=== PATIENT | female | born 2000 | race African-American/Black ===

== ENCOUNTER 2024-10-04 09:37 | Outpatient (REF) | payer MEDICAID, SELFPAY ==
--- OUTSIDE RECORDS SUMMARY | 2024-10-04 10:06 | XMS_ITS | Encounter Summary ---
Author Organization [employer] Address [address] [facility] [address] [place] [address] Care Team Providers Care Buckle Sewer Machine Name Role Phone [place] [facility] Primary Care Provider [phone] Reason for Visit * Reason Onset Date Comments IZ 09/30/2024 Encounter Details Date Type Department Care Team ([facility] st Contact Info) Description 09/30/2024 Telephone [facility] [address] [place], [place] [phone] [place] [facility] [address] [place], [place] [phone] IZ Social History Tobacco Use Types Packs/Day Years Used Date Smoking Tobacco: Never Passive Smoke Exposure: Never Smokeless Tobacco: Never Alcohol Use Standard Drinks/Week Comments Never 0 (1 standard drink = 0.6 oz pur e alcohol) Depression Answer Date Recorded Patient Health Questionnaire-9 Score 0 06/10/2022 Housing Stability Answer Date Recorded What is your housing situation today? I have kenney bolivar 01/05/[address] you li ve. Do you have problems with any of the following? None of the above 01/05/2023 Food Insecurity Answer Date Recorded Within the past 12 months, y ou worried that your food would run out before you got money to buy more: Never True 01/05/2023 Within the past 12 months,th e food you bought just didn't last and you didn't have enough money to get more: Never True 07/2022 Transportation Answer Date Recorded In the past 12 months, has l ack of transportation kept you from medical appts, meetings, work or from getting things needed for daily living? No 01/05/2023 Utilities Answer Date Recorded In the past 12 months, has t he electric, gas, oil or water company threatened to shut off services in your home? No 01/05/2023 Depression Answer Date Recorded Patient Health Questionnaire-2 Score 0 06/10/2022 Comments Unknown Sex and Gender Information Value Date Recorded Sex Assigned at Female 12/30/2021 10:16 AM EDT Legal Sex Female 10:16 AM EDT Gender Identity Choose not to disclose 10:16 AM EDT Sexual Orientation Straight 12/30/2021 10 :16 AM EDT documented as of this encounter Miscellaneous Notes * Telephone Encounter - Wendy García RN - 09/30/2024 1:54 PM EDT Order placed. Last neg test 2022. TC placed to pt., she will come to lab next week prior to 3:30pm and is aware results take 3-5 days * Telephone Encounter - Roberto Spaulding - 09/30/2024 12:23 PM EDT Tc from pt reports work needing a TB test. documented in this encounter Plan of Treatment Upcoming Encounters Date Type Department Care Team (Late st Contact Info) Description 11/14/2024 9:15 AM EDT Office Visit [facility] [address] [place] [address] [facility] [address] [place] [address] Scheduled Orders Name Type Priority Associated Diagnoses Orde r Schedule T-SPOT .TB Lab Routine Screening examination for pulmonary tuberculosis Expected: 09/30/2024 (Approximate), Expires: 09/30/2025 documented as of this encounter Visit Diagnoses Diagnosis Screening examination for pulmonary tuberculosis documented in this encounter Additional Health Concerns Assessment Noted Time PHQ-9 Depression Total Score: 0 06/11/19 23 3:00 PM EDT documented as of this encounter Care Teams Buckle Sewer Machine Relationship Specialty Start Date End Date [facility] [address] [place] [phone] PCP - General Family Medicine 10/25/21 documented as of this encounter
[2024-10-07 07:03] LABS: TS Negative Control Passed; TS Panel A 0; TS Panel B 0; TS Positive Control Passed; TSpotTB Negative (Negative)
== END 2024-10-04 09:38 | disposition home or self-care (01) ==
LOC: HO.HHCL 09:37
PROVIDERS: PCP Registered Nurse; Visit Provider Registered Nurse
DX: Z11.1 Encounter for screening for respiratory tuberculosis (principal)
CPT/HCPCS: 36415; 86481

== ENCOUNTER 2024-11-14 11:07 | Outpatient (REF) | payer MEDICAID, SELFPAY ==
--- OUTSIDE RECORDS SUMMARY | 2024-11-14 09:15 | XMS_ITS | Encounter Summary ---
Author Organization [employer] Address [address] [facility] 7[address] [place] [address] Care Team Providers Care Chiller Tender Name Role Phone Vero Delcid Primary Care Provider [phone] Reason for Referral * Consultation (Routine) - Pending Review Specialty Diagnoses / Procedures Referred By Juanita chirinos Referred To Contact Oral Surgery Diagnoses Mucocele of lower lip [facility] FNP [address] [place] [address] Phone: tel: fax: Referral ID Status Reason Start Date Expiration Date Visits Requested Visits Authorized [id number] Pending Review Specialty Services Required 11/14/2024 11/14/2025 1 1 Reason for Visit * Reason Comments Annual Exam Encounter Details Date Type Department Care Team (Late st Contact Info) Description 11/14/2024 9:15 AM EDT Office Visit [facility] [address] [place] [address] [facility]ero Delcid FNP [address] [place] [address] Healthcare maintenance (Primary Dx); Current moderate episode of major depressive disorder without prior episode (CMS/HCC); Mucocele of lower lip; Encounter for BCP ( control pills) initial prescription; Routine screening for STI (sexually transmitted infection); Tobacco use; Class 2 obesity due to excess calories without serious comorbidity with body mass index (BMI) of 37.0 to 37.9 in adult; Dietary counseling; Exercise counseling; Encounter for immunization Social History Tobacco Use Types Packs/Day Years Used Date Smoking Tobacco: Never Passive Smoke Exposure: Never Smokeless Tobacco: Never Tobacco Cessation:Counseling Given: Not Answered Alcohol Use Standard Drinks/Week Comments Never 0 (1 standard drink = 0.6 oz pur e alcohol) Depression Answer Date Recorded Patient Health Questionnaire-9 Score 16 11/14/2024 Patient Health Questionnaire-9 Score 16 11/14/2024 Last PHQ-9: Questionnaire Data Not on file 0 11/14/2024 Housing Stability Answer Date Recorded What is your housing situation today? I do not have housing (Staying with others, in a hotel, in a chcf, living outside on the street, on a beach, in a car, or in a park 11/14/[address] you li ve. Do you have problems with any of the following? I am not sure 11/14/2024 Food Insecurity Answer Date Recorded Within the past 12 months, y ou worried that your food would run out before you got money to buy more: Sometimes True 2024 Within the past 12 months,th e food you bought just didn't last and you didn't have enough money to get more: Sometimes True 11/14/2024 Transportation Answer Date Recorded In the past 12 months, has l ack of transportation kept you from medical appts, meetings, work or from getting things needed for daily living? No 11/14/2024 Utilities Answer Date Recorded In the past 12 months, has t he electric, gas, oil or water company threatened to shut off services in your home? No 11/14/2024 Depression Answer Date Recorded Patient Health Questionnaire-2 Score 3 11/14/2024 Internet Access Answer Date Recorded Internet Access Q1 Yes 11/14/2024 Internet Access Q2 Not on file 11/14/2024 Comments Unknown Sex and Gender Information Value Date Recorded Sex Assigned at Female 12/30/2021 10:16 AM EDT Legal Sex Female 10:16 AM EDT Gender Identity Female 11/07/2024 1:24 PM EDT Sexual Orientation Straight 12/30/2021 10 :16 AM EDT documented as of this encounter Last Filed Vital Signs Vital Sign Reading Time Taken Comments Blood Pressure 118/80 11/14/2024 9:19 AM EDT Pulse 78 11/14/2024 9:19 AM EDT Temperature 36.9 C (98.4 F) 11/14/2024 9:19 AM EDT Respiratory Rate 18 11/14/2024 9:19 AM EDT Oxygen Saturation - - Inhaled Oxygen Concentration - - Weight 110 kg (242 lb 4 oz) 11/14/2024 9:19 AM E DT Height 170.2 cm (5' 7 ) 11/14/2024 9:19 AM EDT Body Mass Index 37.94 11/14/2024 9:19 AM EDT documented in this encounter Functional Status * Over the past 2 weeks, how often have you been bothered by any of the following problems? Question Answer Date of Assessment Author Patient Health Questionnaire-2 Score 3 10/31 9:27 AM EDT Sravani Esquivel MA * Little interest or pleasure in doing things Answer Date of Assessment Author Several days 11/14/2024 9:27 AM EDT Sravani Esquivel MA * Feeling down, depressed, or hopeless Answer Date of Assessment Author More than half the days 11/14/2024 9:27 AM EDT Sravani Dumont MA * Trouble falling or staying asleep, or sleeping too much Answer Date of Assessment Author More than half the days 11/14/2024 9:27 AM EDT Sravani Dumont MA * Feeling tired or having little energy Answer Date of Assessment Author Nearly every day 11/14/2024 9:27 AM EDT Sravani Esquivel MA * Poor appetite or overeating Answer Date of Assessment Author More than half the days 11/14/2024 9:27 AM EDT Sravani Dumont MA * Feeling bad about yourself - or that you are a failure or have let yourself or your family down Answer Date of Assessment Author More than half the days 11/14/2024 9:27 AM EDT Sravani Dumont MA * Trouble concentrating on things, such as reading the newspaper or watching television Answer Date of Assessment Author More than half the days 11/14/2024 9:27 AM EDT Sravani Dumont MA * Moving or speaking so slowly that other people could have noticed? Or the opposite - being so fidgety or restless that you have been moving around a lot more than usual. Answer Date of Assessment Author Several days 11/14/2024 9:27 AM EDT Sravani Esquivel MA * Thoughts that you would be better off or hurting yourself in some way Answer Date of Assessment Author Several days 11/14/2024 9:27 AM EDT Sravani Esquivel MA * Patient Health Questionnaire-9 Score Answer Date of Assessment Author 16 11/14/2024 9:27 AM EDT Sravani Esquivel MA * Over the last 2 weeks, how often have you been bothered by any of the following problems? Question Answer Date of Assessment Author Feeling nervous, anxious, or on edge 2 10/31 9:27 AM EDT Sravani Esquivel MA Not being able to stop or co ntrol worrying 2 11/14/2024 9:27 AM EDT Sravani Esquivel M A Worrying too much about diff erent things 2 11/14/2024 9:27 AM EDT Sravani Esquivel M A Trouble relaxing 2 11/14/2024 9:27 AM EDT Sravani Dumont MA Being so restless that it is hard to sit still 2 11/14/2024 9:27 AM EDT Sravani Esquivel M A Becoming easily annoyed or irritable 3 10/31 9:27 AM EDT Sravani Esquivel MA Feeling afraid as if somethi ng awful might happen 2 11/14/2024 9:27 AM EDT Sravani Esquivel M A HOMER-7 Total Score 15 11/14/2024 9:27 AM EDT Sravani Esquivel MA documented as of this encounter Plan of Treatment Upcoming Encounters Date Type Department Care Team (Late st Contact Info) Description 12/26/2024 1:45 PM EDT Telemedicine [facility] [address] [place] [address] [facility] [address] [place] [address] Scheduled Orders Name Type Priority Associated Diagnoses Orde r Schedule Syphilis Screen Lab Routine Current moderate episode of major depressive disorder without prior episode (CMS/HCC) Expected: 11/14/2024, Expires: 11/14/2025 HIV-1/2 Antigen and Antibodies, Fourth Generation, with Reflexes Lab Routine Current moderate episode of major depressive disorder without prior episode (CMS/HCC) Expected: 11/14/2024 (Approximate), Expires: 11/14/2025 Hepatitis C Antibody with Reflex to HCV, RNA, Quantitative, Real-Time PCR Lab Routine Current moderate episode of major depressive disorder without prior episode (CMS/HCC) Expected: 11/14/2024, Expires: 11/14/2025 Hepatitis B Surface Antibody, Qualitative Lab Routine Current moderate episode of major depressive disorder without prior episode (CMS/HCC) Expected: 11/14/2024 (Approximate), Expires: 11/14/2025 Chlamydia/N. Gonorrhoeae, PCR, Urine Lab Routine Routine screening for STI (sexually transmitted infection) Ordered: 11/14/2024 Scheduled Referrals Name Type Priority Associated Diagnoses Order Schedule Referral to Oral Maxillofacial Surgery Outpatient Referral Routine Mucocele of lower lip Expected: 11/14/2024 (Approximate), Expires: 11/14/2025 documented as of this encounter Procedures Procedure Name Priority Date/Time Associated Diagnosis Comments VITAMIN D,25-OH,TOTAL,IA Routine 11/14/2024 11:27 AM EDT Class 2 obesity due to excess calories without serious comorbidity with body mass index (BMI) of 37.0 to 37.9 in adult HEMOGLOBIN A1C Routine 11/14/2024 11:27 AM EDT Class 2 obesity due to excess calories without serious comorbidity with body mass index (BMI) of 37.0 to 37.9 in adult LIPID PANEL, STANDARD Routine 11/14/2024 11:27 AM EDT Class 2 obesity due to excess calories without serious comorbidity with body mass index (BMI) of 37.0 to 37.9 in adult COMPREHENSIVE METABOLIC PANEL Routine 11/14/2024 11:27 AM EDT Class 2 obesity due to excess calories without serious comorbidity with body mass index (BMI) of 37.0 to 37.9 in adult POCT , URINE Routine 11/14/2024 10:25 AM EDT Encounter for BCP ( control pills) initial prescription documented in this encounter Results * (ABNORMAL) Vitamin D, 25-Hydroxy, Total, Immunoassay (11/14/2024 11:27 AM EDT) Vitamin D 25-OH Total 18.3(L) >30 ng/mL [facility] Comment: Health Based Reference Values*< 20 ng/mL Ccdczhyst26-63 ng/mL Insufficient> 30 ng/mL Sufficient*Eh AGUILAR. N Engl J Med. 2007;357:266-280There is no well-established upper level of normal vitamin Dlevels. Some laboratories use 50 ng/mL as an upper limit ofnormal. However, toxicity is patient-dependent and may occurat any level. Careful correlation with the patient'spresentation is necessary and, if there is concern forvitamin D toxicity, treatment should be consideredirrespective of the serum level.Care must be taken in interpreting Vitamin D results fromdifferent laboratories and methodologies. Published datademonstrated that results from patients undergoinghemodialysis may show a negative bias when tested withvarious automated 25-OH vitamin D assays when compared toLC-MS/MS.When testing samples from patients whose predominant form ofVitamin D is Vitamin D2, such as patients receiving VitaminD2 supplementation, results that are subtherapeutic shouldbe confirmed with another method such as LC-MS/MS. Blood Venous blood specimen / Unknown 11/14/2024 11:27 AM EDT 11/14/2024 1:29 PM EDT [facility] LAB BLOOD ORDERABLES Final Re sult [facility] [address] [place] [phone] * (ABNORMAL) Comprehensive Metabolic Panel (11/14/2024 11:27 AM EDT) Pathologist [facility] Sodium 139 135 - 145 mmol/L [facility] Potassium 4.3 3.3 - 5.1 mmol/L [facility] Chloride 108 96 - 108 mmol/L [facility] Carbon Dioxide 25 22 - 29 mmol/L [facility] Anion Gap 10(L) 12 - 20 [facility] Urea Nitrogen (BUN) 11 9 - 16 mg/dL [facility] Creatinine, Serum 0.60 0.5 - 1.4 mg/dL [facility] Estimated Glomerular Filt Rate >60 [facility] Comment:Chronic Kidney Disea se: Estimated GFR < 60 mL/min/1.68g1[place] Kidney Disease: Estimated GFR < 15 mL/min/1.73m2 Glucose 98 60 - 115 mg/dL [facility] Calcium 9.6 8.4 - 10.2 mg/dL [facility] Bilirubin, Total 0.6 0.0 - 1.0 mg/dL [facility] Aspartate Amino Transferase 20 5 - 31 U/L [facility] Alanine Aminotransferase 13 0 - 31 U/L [facility] Total Protein 7.9 6.5 - 8.0 g/dL [facility] Albumin Level 4.6 3.5 - 5.0 g/dL [facility] Alkaline Phosphatase 85 39 - 117 U/L [facility] Blood Venous blood specimen / Unknown 11/14/2024 11:27 AM EDT 11/14/2024 1:29 PM EDT [facility] BLOOD ORDERABLES Final Re sult [facility] [address] [place] [phone] * (ABNORMAL) Lipid Panel, Standard (11/14/2024 11:27 AM EDT) Triglycerides 129 <150 mg/dL [facility] Comment:Desirable Triglyceri de: less than 150 mg/dLBorderline High Triglyceride 150-199 mg/dLHigh Triglyceride: 200-499 mg/dLVery High Triglyceride: greater than or equal to 5OO mg/dL Cholesterol 207(H) <200 mg/dL [facility] Comment:Desirable Cholestero l: less than 200 mg/dLBorderline High Cholesterol: 200-239 mg/dLHigh Cholesterol: greater than 239 mg/dL LDL Cholesterol Calculated 143(H) <100 mg/dL [facility] Comment:Desirable LDL: less than 100 mg/dLNear Optimal/Above Optimal LDL: 110- 129 mg/dLBorderline High LDL: 130-159 mg/dLHigh LDL: 160-189 mg/dLVery High LDL: greater than or equal to 190 mg/dL HDL Cholesterol 39(L) >40 mg/dL [facility] Comment:Desirable HDL: great er than 40 mg/dL Note: This HDL assay may give artificially low results in patients with liver disease. Blood Venous blood specimen / Unknown 11/14/2024 11:27 AM EDT 11/14/2024 1:29 PM EDT [facility] LAB BLOOD ORDERABLES Final Re sult Performing Organization Address [facility] [[email or web address]] Co de Phone Number [facility] [address] [place] [phone] * Hemoglobin A1c (11/14/2024 11:27 AM EDT) Hemoglobin A1c 5.2 <6.0 % [facility] Comment:Hemoglobin A1C Refer ence Range Adults: 4.8 - 6.0 % Non diabetic: < 6.0 % Goal: < 7.0 %Additional Action Suggested: > 8.0 %Note: Hemoglobin A1c results are invalid for patients with abnormal amounts of HbF. Blood transfusions may impact the HbA1c concentration in the patient sample. Estimated Average Glucose 103 mg/dL [facility] Comment:eAG = Estimated ave rage glucose which is %A1C expressed asaverage glucose, using the formula of the [id number] Glucose study (ADAG), Diabetes Care, Vol.31,#8,Sep. 2007 Blood Venous blood specimen / Unknown 11/14/2024 11:27 AM EDT 11/14/2024 1:29 PM EDT [facility] LAB BLOOD ORDERABLES Final Re sult Performing Organization Address [facility] [[email or web address]] Co de Phone Number [facility] [address] [place] [phone] * POCT , urine manually resulted (11/14/2024 10:25 AM EDT) Preg Test, Ur Negative Negative, Indeterminate, None Detected, Invalid, Specimen unsatisfactory for evaluation, Weakly Positive, 2+ QC Media Lot # [id number] Lot# Expiration Date [id number] Urine 11/14/2024 10:2 5 AM EDT [facility] POINT OF CARE TEST ENTER/EDIT ORDERABLES Final Result documented in this encounter Visit Diagnoses Diagnosis Healthcare maintenance- Primary Current moderate episode of major depressive disorder without prior episode ([facility]/HCC) Mucocele of lower lip Other and unspecified diseases of the oral soft tissues Encounter for BCP ( control pills) initial prescription General counseling for prescription of oral contraceptives Routine screening for STI (sexually transmitted infection) Screening examination for venereal disease Tobacco use Class 2 obesity due to excess calories without serious comorbidity with body mass index (BMI) of 37.0 to 37.9 in adult Dietary counseling Dietary surveillance and counseling Exercise counseling Encounter for immunization documented in this encounter Additional Health Concerns Assessment Noted Time PHQ-9 Depression Total Score: 16 025 9:27 AM EDT documented as of this encounter Care Teams Chiller Tender Relationship Specialty Start Date End Date [facility] [address] [place] [phone] PCP - General Family Medicine 10/25/21 documented as of this encounter
[2024-11-14 13:59] LABS: Alanine Aminotransferase 13 U/L (0-31); Albumin Level 4.6 g/dL (3.5-5.0); Alkaline Phosphatase 85 U/L (39-117); Anion Gap 10 (12-20); Aspartate Amino Transferase 20 U/L (5-31); Blood Urea Nitrogen 11 mg/dL (9-16); Calcium 9.6 mg/dL (8.4-10.2); Carbon Dioxide 25 mmol/L (22-29); Chloride 108 mmol/L (96-108); Cholesterol 207 mg/dL (<200); Estimated Glomerular Filt Rate > 60; HDL Cholesterol 39 mg/dL (>40); Potassium 4.3 mmol/L (3.3-5.1); Sodium 139 mmol/L (135-145); Total Protein 7.9 g/dL (6.5-8.0); Triglycerides 129 mg/dL (<150)
[2024-11-14 14:22] LABS: Hemoglobin A1C 92.5072 umol/L; Total Hemoglobin (HGBA1C) 2790.8332 umol/L
--- OUTSIDE RECORDS SUMMARY | 2024-11-14 14:50 | XMS_ITS | Clinical Summary ---
Author Organization [employer] Address [address] [facility] 7t [place] [address] Care Team Providers Care Compensation Expert Name Role Phone [facility] Primary Care Provider [phone] Allergies No known active allergies Medications fluticasone (Flonase Allergy Relief) 50 MCG/ACT nasal spray Use 2 puffs each nostril BID for 1 week, then 1 spray by Intranasal route every day, 16 g 1 3 Active cetirizine (ZyrTEC) 10 MG tablet 1 tablet by Oral route every day at bedtime 90 tablet 1 3 Active nicotine polacrilex (Nicorette) 4 MG gumIndications:To bacco use Chew 1 each (4 mg) if needed for smoking cessation. Do not exceed 24 pieces in 24 hours 100 each 5 12/15/19 25 Active FLUoxetine (PROzac) 10 MG capsuleIndication s:Current moderate episode of major depressive disorder without prior episode (CMS/HCC) Take 1 capsule (10 mg) by mouth Once per day. 30 capsule 11 5 11/15/19 26 Active levonorgestrel-et hinyl estradiol (Aviane) 0.1-20 MG-MCG tabletIndications :Encounter for BCP ( control pills) initial prescription Take 1 tablet by mouth Once per day. 28 tablet 12 5 11/15/19 26 Active Active Problems Problem Noted Date Diagnosed Date BMI 40.0-44.9, adult 04/20/2021 Allergic rhinitis 01/15/2012 Resolved Problems Problem Noted Date Diagnosed Date Resolved Date Mixed anxiety and depressive disorder 04/20/2021 06/10/2022 Encounters Date Type Department Care Team Description 11/14/2024 9:15 AM EDT Office Visit [address] [address] Vero Delcid FNP Healthcare maintenance (Primary Dx); Current moderate episode [...] Dietary counseling; Exercise counseling; Encounter for immunization 11/14/2024 Results Follow-Up [address] [address] Vero Delcid FNP Vitamin D, 25-Hydroxy, Total, Immunoassay 11/14/2024 Patient Outreach [address] [address] Vero Delcid FNP Care Coordination (CHW outreach for SDOH housing search-LVM ) 11/14/2024 Travel 11/11/[address] [address] Vero Delcid FNP Chart Prep 11/07/2024 Travel 11/04/2024 Patient Outreach [address] [address] Vero Delcid FNP Pre-visit Planning (Unable to complete SDOH screening will complete during office vist) 09/30/[address] [address] Vero Delcid FNP IZ from Last 3 Months Immunizations Immunization Administration Dates Next Due DTP 10/02/2005, 3,2001,09/16,2001 HPV 9-Valent 09/10/2015,07/31/2014 HPV, Quadrivalent 06/30/2013 Hep A, ped/adol, 2 dose 07/31/2014,06/30/2013 Hep B, Adolescent or Pediatric 02/17/2002,2001,2001 Hib (HbOC) 06/10/2002, 2,2001,07/15 IPV 10/02/2005, 2,2001,07/15 Influenza, IIV3, injectable 01/08/2011, 6 Influenza, Split (incl. brenda fied surface antigen) 06/30/2013 Influenza, live, intranasal 01/16/2012 Influenza, seasonal, injecta ble, preservative free 03/17/2008 MMR 10/02/2005,06/10/2002 Meningococcal MCV4P ACYW-135 09/09/2017,07/01/19 14 Pneumococcal Conjugate PCV 7 09/17/2002, 2001,2001,07/15 Tdap 11/14/2024,06/30/2013 Varicella 03/17/2008,06/10/2002 Social History Tobacco Use Types Packs/Day Years [...] with others, in a hotel, in a skilled nursing, living outside on the street, on a [...] Orientation Straight 12/30/2021 10 :16 AM EDT Last Filed Vital Signs Vital Sign Reading Time Taken Comments Blood Pressure 118/80 11/14/2024 9:19 AM EDT Pulse 78 11/14/2024 9:19 AM EDT Temperature 36.9 C (98.4 F) 11/14/2024 9:19 AM EDT Respiratory Rate 18 11/14/2024 9:19 AM EDT Oxygen Saturation 98% 07/25/2022 2:20 PM EDT Inhaled Oxygen Concentration - - Weight 110 kg (242 lb 4 oz) 11/14/2024 9:19 AM E DT Height 170.2 cm (5' 7 ) 11/14/2024 9:19 AM EDT Body Mass Index 37.94 11/14/2024 9:19 AM EDT Plan of Treatment Upcoming Encounters Date Type Department Care Team (Late st Contact Info) Description 12/26/2024 1:45 PM EDT Telemedicine [facility] MED[facility]INE [address] [place] [address] [facility] [address] [place] [address] Health Maintenance Due Date Last Done Comments Chlamydia and Gonorrhea Screening 2001 Family Planning (PISQ) 2016 Meningococcal B Vaccine (1 of 2 - Standard) 2017 Pap Smear 2022 COVID-19 Vaccine ( - season) 2024 Influenza Vaccine (#1) 2024 4, 01/16/2012, 01/08/2011, Additional history exists Depression Monitoring 05/14/2025 11/14/2024, 025 Disability Screening 11/07/2025 11/07/2024 Alcohol/Substance Use Screening 11/14/2025 11/14/2024 SDOH Screening 11/14/2025 11/14/2024 Tobacco Screening 11/14/2025 11/14/2024 Lipid Panel 11/14/2029 11/14/2024, 06/10/2022 DTaP/Tdap/Td Vaccines (8 - Td or Tdap) 11/14/2034 11/14/2024, 06/30/2013, 10/02/2005, Additional history exists Zoster Vaccines (1 of 2) 05/17/2051 RSV Patients and Patients Aged 60 years or older (1 - 1-dose 75+ series) 2076 Hepatitis B Vaccines Completed 02/17/2002, 2001, 2001 HIB Vaccines Completed 06/10/2002, 10/31, 2001, Additional history exists Pneumococcal Vaccine: Pediatrics (0 to 5 Years) and At-Risk Patients (6 to 49) Years Aged Out 09/17/2002, 2001, 2001, Additional history exists No longer eligible based on patient's age to complete this topic IPV Vaccines Completed 10/02/2005, 01/30, 2001, Additional history exists Hepatitis A Vaccines Completed 07/31/2014, 07/01/19 14 HPV Vaccines Completed 09/10/2015, 06/0 03/2014, 06/30/2013 Meningococcal Vaccine Completed 09/09/2017, 014 HIV Screening Completed 06/10/2022 Hepatitis C Screening Completed 06/10/2022 RSV under 20 months Aged Out No longe r eligible based on patient's age to complete this topic Rotavirus Vaccines Aged Out No longer eligible based on patient's age to complete this topic Procedures Procedure Name Priority Date/Time Associated Diagnosis [...] for BCP ( control pills) initial prescription T-SPOT(R).TB Routine 10/04/2024 9:45 AM EDT Screening examination for pulmonary tuberculosis HEPATITIS C AB W/REFL TO HCV RNA, QN, PCR Routine 06/10/2022 3:23 PM EDT Health care maintenance HIV 1/2 ANTIGEN/ANTIBODY, FOURTH GENERATION W/RFL Routine 06/10/2022 3:23 PM EDT Health care maintenance from Last 3 Months or Most Recently Relevant to Health Maintenance Results * (ABNORMAL) Vitamin D, 25-Hydroxy, Total, Immunoassay (11/14/2024 11:27 AM EDT) [facility] Vitamin D 25-OH Total 18.3(L) >30 ng/mL [facility] Comment: Health Based Reference Values*< 20 ng/mL [id number] ng/mL Insufficient> 30 ng/mL Sufficient*Eh AGUILAR. N [...] 11:27 AM EDT 11/14/2024 1:29 PM EDT [facility] LAB BLOOD ORDERABLES Final Re sult Performing Organization Address [facility] Co de Phone Number [facility] [address] [place] [phone] * Hemoglobin A1c (11/14/2024 11:27 AM EDT) Hemoglobin A1c 5.2 <6.0 % [facility] Comment:Hemoglobin A1C Refer ence Range Adults: 4.8 - 6.0 % Non diabetic: < 6.0 % Goal: < 7.0 %Additional Action Suggested: > 8.0 %Note: Hemoglobin A1c results are invalid for patients with abnormal amounts of HbF. Blood transfusions may impact the HbA1c concentration in the patient sample. Estimated Average Glucose 103 mg/dL [facility] Comment:eAG = Estimated ave rage glucose which is %A1C expressed asaverage glucose, using the formula of the H3R-VhkbpqaOmfcvfd Glucose study (ADAG), Diabetes Care, Vol.31,#8,Sep. 2007 Blood Venous blood specimen / Unknown 11/14/2024 11:27 AM EDT 11/14/2024 1:29 PM EDT [facility] LAB BLOOD ORDERABLES Final Re sult Performing Organization Address [facility] Co de Phone Number [facility] [address] [place] [phone] * (ABNORMAL) Lipid Panel, Standard (11/14/2024 11:27 AM EDT) Triglycerides 129 <150 mg/dL [facility] Comment:Desirable Triglyceri de: less than 150 mg/dLBorderline High Triglyceride 150-199 mg/dLHigh Triglyceride: 200-499 mg/dLVery High Triglyceride: greater than or equal to 5OO mg/dL Cholesterol 207(H) <200 mg/dL [facility] Comment:Desirable Cholestero l: less than 200 mg/dLBorderline High Cholesterol: 200-239 mg/dLHigh Cholesterol: greater than 239 mg/dL LDL Cholesterol Calculated 143(H) <100 mg/dL [facility] Comment:Desirable LDL: less than 100 mg/dLNear Optimal/Above Optimal LDL: 110- 129 mg/dLBorderline High LDL: 130-159 mg/dLHigh LDL: 160-189 mg/dLVery High LDL: greater than or equal to 190 mg/dL HDL Cholesterol 39(L) >40 mg/dL [facility] Comment:Desirable HDL: great er than 40 mg/dL Note: This HDL assay may give artificially low results in patients with liver disease. Blood Venous blood specimen / Unknown 11/14/2024 11:27 AM EDT 11/14/2024 1:29 PM EDT [facility] LAB BLOOD ORDERABLES Final Re sult [facility] [address] [place] [phone] * (ABNORMAL) Comprehensive Metabolic Panel (11/14/2024 11:27 AM EDT) Sodium 139 135 - 145 mmol/L [facility] Potassium 4.3 3.3 - 5.1 mmol/L [facility] Chloride 108 96 - 108 mmol/L [facility] Carbon Dioxide 25 22 - 29 mmol/L [facility] Anion Gap 10(L) 12 - 20 [facility] Urea Nitrogen (BUN) 11 9 - 16 mg/dL [facility] Creatinine, Serum 0.60 0.5 - 1.4 mg/dL [facility] Estimated Glomerular Filt Rate >60 [facility] Comment:Chronic Kidney Disea se: Estimated GFR < 60 mL/min/1.97s8Jtgmtk Kidney Disease: Estimated GFR < 15 mL/min/1.73m2 Glucose 98 60 - 115 mg/dL [facility] Calcium 9.6 8.4 - 10.2 mg/dL [facility] Bilirubin, Total 0.6 0.0 - 1.0 mg/dL [facility] Aspartate Amino Transferase 20 5 - 31 U/L [facility] Alanine Aminotransferase 13 0 - 31 U/L [facility] Total Protein 7.9 6.5 - 8.0 g/dL [facility] Albumin Level 4.6 3.5 - 5.0 g/dL [facility] Alkaline Phosphatase 85 39 - 117 U/L [facility] Blood Venous blood specimen / Unknown 11/14/2024 11:27 AM EDT 11/14/2024 1:29 PM EDT [facility] LAB BLOOD ORDERABLES Final Re sult [facility] [address] [place] [phone] * POCT , urine manually resulted (11/14/2024 10:25 AM EDT) Pathologist [facility] Preg Test, Ur Negative Negative, Indeterminate, None Detected, Invalid, Specimen unsatisfactory for evaluation, Weakly Positive, 2+ QC Media Lot # [id number] Lot# Expiration Date [id number] Urine 11/14/2024 10:2 5 AM EDT [facility] POINT OF CARE TEST ENTER/EDIT ORDERABLES Final Result * T-SPOT??.TB (10/04/2024 9:45 AM EDT) Pathologist [facility] T Spot TB Negative Negative [facility] Comment:A negative test resu lt does not exclude the possibilityof exposure to or infection with Mycobacteriumtuberculosis (M. tuberculosis). Patients with recentexposure to TB infected individuals exhibiting anegative T-SPOT.TB result should be considered forretesting within 6 weeks or if other relevant clinicalsymptoms indicate. Results from T-SPOT.TB testing mustbe used in conjunction with each individual'sepidemiological history, current medical status,and results of other diagnostic evaluations.The T-SPOT.TB test is qualitative and results arereported as positive, borderline, or negative, giventhat the test controls perform as expected. In linewith the Centers for Disease Control and Prevention's2010 recommendation to report quantitative measurementsalongside the qualitative result, the laboratoryprovides spot counts for informational purposes only.The T-SPOT.TB test should not be interpreted as aquantitative test. TS PANEL A 0 [facility] TS PANEL B 0 [facility] Negative Control Passed [facility] Positive Control Passed [facility] Comment:For additional infor catie, please refer tohttp://education.RetailNext/faq/GNX101(This link is being provided for informational/educational purposes only.)THIS TEST WAS PERFORMED AT:[id number] [place] [address]MEOASFNFAUSTINO HUMPHREY MD,PHD 10/04/2024 9:45 AM EDT 10/04/2024 11:13 AM EDT [facility] LAB BLOOD ORDERABLES Final Re sult [facility] [address] [place] [phone] * Hepatitis C Antibody with Reflex to HCV, RNA, Quantitative, Real-Time PCR (06/10/2022 3:23 PM EDT) Hepatitis C Antibody NON-REACT GENE NON-REACT GENE [facility] [place] [facility] Index 0.14 <1.00 [facility] [place] [facility] Comment: HCV antibody was non-reactive. There is no laboratory evidence of HCV infection. In most cases, no further action is required. However, if recent HCV exposure is suspected, a test for HCV RNA (test code 13444) is suggested. For additional information please refer to http://[employer].RetailNext/faq/JDH35m2 (This link is being provided for informational/ educational purposes only.) Blood Venous blood specimen / Unknown 06/10/2022 3:23 PM EDT 06/10/2022 3:23 PM EDT [facility] LAB BLOOD ORDERABLES Final Re sult [facility] [address], [place] [address] [employer] [place] [employer] [address] [place] [address] * HIV-1/2 Antigen and Antibodies, Fourth Generation, with Reflexes (06/10/2022 3:23 PM EDT) [facility] HIV Antigen/Antibody, 4th Generation NON-REAC TIVE NON-REAC TIVE [facility] [place] [facility] Comment: HIV-1 antigen and HIV-1/HIV-2 antibodies were not detected. There is no laboratory evidence of HIV infection. PLEASE NOTE: This information has been disclosed to you from records whose confidentiality may be protected by state law. If your state requires such protection, then the state law prohibits you from making any further disclosure of the information without the specific written consent of the person to whom it pertains, or as otherwise permitted by law. A general authorization for the release of medical or other information is NOT sufficient for this purpose. For additional information please refer to http://[email or web address].com.Breeze Technology/faq/DLY573 (This link is being provided for informational/ educational purposes only.) The performance of this assay has not been clinically validated in patients less than 2 years old. Blood Venous blood specimen / Unknown 06/10/2022 3:23 PM EDT 06/10/2022 3:23 PM EDT [facility] BLOOD ORDERABLES Final Re sult [facility] [address] [place] [address] [facility] [place] [facility] [address] [place] [address] from Last 3 Months or Most Recently Relevant to Health Maintenance Insurance [address] [place] [phone] [facility] C3 Care Teams Compensation Expert Relationship Specialty Start Date End Date [facility] [address] [place] [phone] PCP - General Family Medicine 10/25/21
--- OUTSIDE RECORDS SUMMARY | 2024-11-14 14:50 | XMS_ITS | Encounter Summary ---
Author Organization [employer] Address [address] [facility] 7t [place] [address] Care Team Providers Care Scale Technician Name Role Phone [facility] Primary Care Provider [phone] Reason for Visit * Reason Comments Care Coordination CHW outreach for SDO H housing search-LVM Encounter Details Date Type Department Care Team (Latest Contact Info) Description 11/14/2024 Patient Outreach [facility] [address] [place] [address] [facility] [address] [place] [address] Care Coordination (CHW outreach for SDOH housing search-LVM ) Social History Tobacco Use Types Packs/Day Years [...] with others, in a hotel, in a mcfp, living outside on the street, on a [...] AM EDT documented as of this encounter Functional Status * Over the [...] of Assessment Author 16 11/14/2024 9:27 AM ELOISAT Sravani Esquivel [place] * Over the last [...] to sit still 2 11/14/2024 9:27 AM Sravani Hawkins M A Becoming easily annoyed or irritable 3 10/31 9:27 AM EDT Sravani Esquivel MA Feeling afraid as if somethi ng awful might happen 2 11/14/2024 9:27 AM ELOISAT Sravani Esquivel M A HOMER-7 Total Score 15 11/14/2024 9:27 AM Sravani Hawkins MA documented as of this encounter Progress Notes * Steven Pendleton - 11/14/2024 11:43 AM EDT CHW Steven Helder, placed outbound call to patient for assistance with SDOH as a referral was placed by the provider. Patient had screened positive for the following SDOH housing insecurities. Patient did not answer at this time. Patient's name and were not confirmed. CHW left detailed message and provided contact information requesting return call for more assistance. documented in this encounter Plan of Treatment Upcoming Encounters Date Type Department Care Team ([facility] st Contact Info) Description 12/26/2024 1:45 PM EDT Telemedicine [facility] [address] [place] [address] Vero Delcid FNP [address] [place] [address] documented as of this encounter Visit Diagnoses Not on filedocumented in this encounter Additional Health Concerns Assessment Noted Time PHQ-9 Depression Total Score: 16 025 9:27 AM EDT documented as of this encounter Care Teams Scale Technician Relationship Specialty Start Date End Date Vero Delcid FNP [address] [place] [address] PCP - General Family Medicine 10/25/21 documented as of this encounter
--- OUTSIDE RECORDS SUMMARY | 2024-11-14 14:50 | XMS_ITS | Encounter Summary ---
Author Organization [employer] Address [address] [facility] 7t [place] [address] Care Team Providers Care Respiratory Therapist Name Role Phone Vero Delcid [facility] Primary Care Provider [phone] Encounter Details Date Type Department Care Team (Latest Contact Info) Description 11/14/2024 Travel Social History Tobacco Use Types Packs/Day Years [...] with others, in a hotel, in a fci, living outside on the street, on a [...] Trouble relaxing 2 11/14/2024 9:27 AM EDT M Sravani nunez [place] Being so restless that it is [...] Info) Description 12/26/2024 1:45 PM EDT Telemedicine [facility] [address] [place] [address] FarhanaVero carlin FNP [address] [place] [address] documented as of this encounter Visit Diagnoses Not on filedocumented in this encounter Additional Health Concerns Assessment Noted Time PHQ-9 Depression Total Score: 16 11/14/ 025 9:27 AM EDT documented as of this encounter Care Teams Respiratory Therapist Relationship Specialty Start Date End Date [facility] [address] [place] [address] PCP - General Family Medicine 10/25/21 documented as of this encounter
--- OUTSIDE RECORDS SUMMARY | 2024-11-14 14:50 | XMS_ITS | Encounter Summary ---
Author Organization [employer] Address [address] [facility] 7t [place] [address] Care Team Providers Care Storm Chaser Name Role Phone [place], [facility] Primary Care Provider [phone] Encounter Details Date Type Department Care Team (Late st Contact Info) Description 11/14/2024 Results Follow-Up [facility] [address] [place] [address] Farhana, [facility] [address] [place] [address] Vitamin D, 25-Hydroxy, Total, Immunoassay Social History Tobacco Use Types Packs/Day Years [...] with others, in a hotel, in a snf, living outside on the street, on a [...] to sit still 2 11/14/2024 9:27 AM ELOISAT Sravani Esquivel M A Becoming easily annoyed or irritable 3 10/31 9:27 AM EDT Sravani Esquivel [place] Feeling afraid as if somethi ng awful might happen 2 11/14/2024 9:27 AM EDT Sravani Esquivel M A HOMER-7 Total Score 15 11/14/2024 9:27 AM Sravani Hawkins [place] documented as of this encounter Plan of Treatment Upcoming Encounters Date Type Department Care Team (Late st Contact Info) Description 12/26/2024 1:45 PM EDT Telemedicine [facility] [address] [place] [address] Vero Delcid FNP [address] [place], [place] [phone] documented as of this encounter Visit Diagnoses Not on filedocumented in this encounter Additional Health Concerns Assessment Noted Time PHQ-9 Depression Total Score: 16 025 9:27 AM EDT documented as of this encounter Care Teams Storm Chaser Relationship Specialty Start Date End Date Vero Delcid FNP [address] [place] [phone] PCP - General Family Medicine 10/25/21 documented as of this encounter
--- OUTSIDE RECORDS SUMMARY | 2024-11-14 14:50 | XMS_ITS | Encounter Summary ---
Author Organization [employer] Address [address] [facility] 7t [place] [address] Care Team Providers Care Kiln Car Unloader Name Role Phone [facility] Primary Care Provider [phone] Reason for Visit * Reason Onset Date Comments Chart Prep 11/11/2024 Encounter Details Date Type Department Care Team ([facility] st Contact Info) Description 11/11/2024 Telephone [facility] [address] [place], [place] [phone] [facility] [address] [place], [place] [phone] Chart Prep Social History Tobacco Use Types Packs/Day Years [...] encounter Miscellaneous Notes * Telephone Encounter - Anne Marie Richey [place] - 11/11/2024 2:38 PM EDT Chart Prep Labs: done Images: not applicable Referrals: not applicable Vaccines due: Covid, Flu, Tdap, and MCV4 Screenings: pap smear, STI screening, and LMP Overdue care gaps: SBIRT, SDOH, PHQ-9, and HOMER-7 documented in this encounter Plan of Treatment Upcoming Encounters Date Type Department Care Team (Late st Contact Info) Description 12/26/2024 1:45 PM EDT Telemedicine [facility] [address] [place] [address] Vero Delcid FNP [address] [place] [address] documented as of this encounter Visit Diagnoses Not on filedocumented in this encounter Additional Health Concerns Assessment Noted Time PHQ-9 Depression Total Score: 0 06/11/19 23 3:00 PM EDT documented as of this encounter Care Teams Kiln Car Unloader Relationship Specialty Start Date End Date Vero Delcid FNP [address] [place] [address] PCP - General Family Medicine 10/25/21 documented as of this encounter
[2024-11-14 15:50] LABS: CT PCR Urine NOT DETECTED (Not Detect.); NG PCR Urine NOT DETECTED (Not Detect.)
[2024-11-15 08:13] LABS: HBS Num1 2.46 mIU/mL (0-7.99); HIV Num 1 0.04 S/CO (0.00-0.99); ~HepC Num1 0.08 S/CO (0.00-0.79); ~Hepatitis B Surface Antibody NONREACTIVE (Nonreactive); ~Hepatitis C Antibody Nonreactive (Nonreactive)
[2024-11-15 09:00] LABS: Syphilis Screen Nonreactive (Nonreactive)
== END 2024-11-14 11:08 | disposition home or self-care (01) ==
LOC: HO.HHCL 11:07
PROVIDERS: PCP Registered Nurse; Visit Provider Registered Nurse
DX: Z11.3 Encounter for screening for infections with a predominantly sexual mode of transmission (principal); Z11.8 Encounter for screening for other infectious and parasitic diseases; Z11.59 Encounter for screening for other viral diseases; F32.1 Major depressive disorder, single episode, moderate; E66.812 Obesity, class 2; E66.09 Other obesity due to excess calories; Z68.37 Body mass index [BMI] 37.0-37.9, adult
CPT/HCPCS: 80053; 80061; 82306; 83036; 86706; 86780; 86803; 87389; 87491; 87591